=== PATIENT | female | born 1950 | race Caucasian/White ===

== ENCOUNTER 2017-02-04 18:35 | Observation (INO) | payer MEDICARE, BC ==
[~2017-02-04] VITALS: Ht 160 cm; Wt 77.3 kg
[~2017-02-04 18:35] MED LIST: CRES10 PO; FER325 PO; LEVO500T72 PO; ONDA4TAB8 PO; OXYC-281 PO; PANT40TA4 PO; SUMA100T9 PO
[2017-02-04] MEDS ORDERED: morphine 2 MG INJ IV ONE (19:30)
[2017-02-04 19:37] LABS: BASOPHILS % 0.8 % (0.0-2.0); EOSINOPHILS # 0.1 10^3/ul (0.0-0.5); EOSINOPHILS % 1.5 % (0.0-7.0); HEMATOCRIT 36.6 % (37.0-47.0); HEMOGLOBIN 12.8 g/dl (12.0-16.0); LYMPHOCYTES # 1.6 10^3/ul (0.8-2.9); LYMPHOCYTES % 30.8 % (15.0-51.0); MEAN CORPUSCULAR HEMOGLOBIN 31.9 pg (29.0-33.0); MEAN CORPUSCULAR VOLUME 91.3 fl (82.0-101.0); MEAN PLATELET VOLUME 8.4 fl (7.4-10.4); MONOCYTE # 0.4 10^3/ul (0.3-0.9); MONOCYTES % 7.5 % (0.0-11.0); NEUTROPHIL # 3.1 10^3/ul (1.6-7.5); NEUTROPHILS % 59.2 % (39.0-77.0); PLATELET COUNT 220 10^3/UL (140-415); RED BLOOD COUNT 4.01 10^6/ul (4.20-5.40); RED CELL DISTRIBUTION WIDTH 11.3 % (11.5-14.5); WHITE BLOOD COUNT 5.2 10^3/ul (4.8-10.8)
[2017-02-04 19:56] LABS: INR 0.94; PROTIME 12.6 Sec (12.2-14.2)
[2017-02-04 19:57] LABS: PARTIAL THROMBOPLASTIN TIME 33.4 Sec (25.0-35.0)
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
[2017-02-04 20:11] LABS: ALANINE AMINOTRANSFERASE 34 IU/L (13-69); ALBUMIN 4.5 g/dl (3.3-4.9); ALKALINE PHOSPHATASE 105 IU/L (42-121); ANION GAP 16 (8-16); ASPARTATE AMINO TRANSFERASE 23 IU/L (15-46); BLOOD UREA NITROGEN 9 mg/dl (7-20); CALCIUM 9.5 mg/dl (8.4-10.2); CARBON DIOXIDE 25 mmol/L (21-31); CHLORIDE 88 mmol/L (97-110); CREATININE 0.85 mg/dl (0.44-1.00); GLUCOSE 79 mg/dl (70-220); POTASSIUM 4.5 mmol/L (3.5-5.1); SODIUM 124 mmol/L (135-144); TOTAL PROTEIN 6.7 g/dl (6.1-8.1)
[2017-02-04 20:24] LABS: TROPONIN-I < 0.012 ng/ml (0.00-0.12)
[2017-02-04] MEDS ORDERED: SOD CHLORIDE 0.9% 100 ML ONE (20:28)
[2017-02-04] MEDS ORDERED: IOHEXOL 300MG/ML 150 ML BTL ONE (20:28)
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
[2017-02-04 22:53] LABS: ADD UMIC YES; UR ASCORBIC ACID NEGATIVE (NEGATIVE); UR BILIRUBIN (Dip) NEGATIVE (NEGATIVE); UR BLOOD (Dip) 1+ mg/dL (NEGATIVE); UR CLARITY CLEAR (CLEAR); UR COLOR COLORLESS (YELLOW); UR GLUCOSE (Dip) NEGATIVE (NEGATIVE); UR KETONES (Dip) TRACE mg/dL (NEGATIVE); UR LEUKOCYTE ESTERASE (Dip) NEGATIVE Leu/ul (NEGATIVE); UR NITRITE (Dip) NEGATIVE (NEGATIVE); UR RBC 2 /HPF (0-5); UR SPECIFIC GRAVITY (Dip) 1.011 (1.003-1.030); UR SQUAMOUS EPITHELIAL CELL FEW /HPF (FEW); UR TOTAL PROTEIN (Dip) NEGATIVE (NEGATIVE); UR UROBILINOGEN (Dip) NEGATIVE (NEGATIVE)
[2017-02-04] MEDS ORDERED: ONDANSETRON 4 MG INJ IV PRN (23:00)
[2017-02-04] MEDS ORDERED: ACETAMINOPHEN 325 MG TAB PO PRN (23:00)
[2017-02-04] MEDS ORDERED: CITA-104 PO (23:03)
[2017-02-04] MEDS ORDERED: DIAZ10TA4 PO (23:03)
[2017-02-04 23:04] LABS: POTASSIUM,URINE RANDOM 9.8 mmol/L (25-125)
[2017-02-04] MEDS ORDERED: SOLI10TA5 PO (23:05)
[2017-02-04] MEDS ORDERED: MEMA5TAB PO (23:05)
[2017-02-04] MEDS ORDERED: FURO20TA3 PO (23:17)
[2017-02-05] VITALS (14 sets, daily range): BP systolic 126–173; BP diastolic 60–74; PULSE 58–68; RESP 16–18; TEMP 98.6; Ht 160 cm; Wt 77.3 kg
[2017-02-05] MEDS ORDERED: DIAZEPAM 5 MG TAB PO PRN (02:00)
[2017-02-05] MEDS: SOD CHLORIDE 0.9% 1,000 ML IV SCH ×5 (02:56→23:33)
[2017-02-05] MEDS: OXYCODONE/ACETAMINOPHEN (5/325) TAB PO PRN ×5 (03:00→23:29)
[2017-02-05] MEDS: morphine 2 MG INJ IV PRN ×4 (03:00→20:10)
[2017-02-05] MEDS: PANTOPRAZOLE (EC) 40 MG TAB PO SCH (05:06)
[2017-02-05] MEDS: LEVOFLOXACIN 500 MG TAB PO SCH (05:06)
[2017-02-05] MEDS: SUMATRIPTAN 50 MG TAB PO PRN ×2 (05:21→14:09)
[2017-02-05 08:11] LABS: CALCIUM 8.9 mg/dl (8.4-10.2); CREATININE 0.87 mg/dl (0.44-1.00); POTASSIUM 4.3 mmol/L (3.5-5.1)
[2017-02-05] MEDS: SOLIFENACIN 5 MG TAB PO SCH (09:00)
[2017-02-05] MEDS: MEMANTINE 5 MG TAB PO SCH ×2 (09:01→21:19)
[2017-02-05] MEDS: CITALOPRAM 20 MG TAB PO SCH (09:02)
[2017-02-05] MEDS: ACETAMINOPHEN 325 MG TAB PO PRN (11:55)
[2017-02-05] MEDS: ONDANSETRON 4 MG TAB PO PRN (11:55)
[2017-02-05] MEDS ORDERED: ALBUTEROL 0.083% (NEB) 2.5 MG/3 ML AMP HHN PRN (13:30)
[2017-02-05] MEDS ORDERED: LEVOTHYROXINE 50 MCG TAB PO ONE (14:30)
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
[2017-02-05] MEDS ORDERED: ATORVASTATIN 40 MG TAB PO SCH (21:00)
[2017-02-06] VITALS: BP 134/62; RESP 18
[2017-02-06 00:03] VITALS: PULSE 61
[2017-02-06] MEDS: morphine 2 MG INJ IV PRN (00:40)
[2017-02-06 04:00] VITALS: BP 131/60; RESP 20
[2017-02-06 04:03] VITALS: PULSE 63
[2017-02-06] MEDS ORDERED: SUMATRIPTAN 50 MG TAB PO ONE (04:30)
[2017-02-06] MEDS: ACETAMINOPHEN 325 MG TAB PO PRN ×2 (04:33→12:42)
[2017-02-06] MEDS ORDERED: LEVOTHYROXINE 50 MCG TAB PO SCH (06:00)
[2017-02-06] MEDS: LEVOFLOXACIN 500 MG TAB PO SCH (06:44)
[2017-02-06] MEDS: PANTOPRAZOLE (EC) 40 MG TAB PO SCH (06:44)
[2017-02-06 08:07] VITALS: PULSE 61
[2017-02-06 08:21] LABS: ALBUMIN 3.6 g/dl (3.3-4.9); ALBUMIN/GLOBULIN RATIO 1.71; CALCIUM 9.3 mg/dl (8.4-10.2); CREATININE 0.57 mg/dl (0.44-1.00); POTASSIUM 4.6 mmol/L (3.5-5.1); TOTAL PROTEIN 5.7 g/dl (6.1-8.1)
[2017-02-06] MEDS: CITALOPRAM 20 MG TAB PO SCH (09:35)
[2017-02-06] MEDS: MEMANTINE 5 MG TAB PO SCH (09:36)
[2017-02-06] MEDS: OXYCODONE/ACETAMINOPHEN (5/325) TAB PO PRN (09:36)
[2017-02-06] MEDS: ONDANSETRON 4 MG TAB PO PRN (09:36)
[2017-02-06] MEDS: SOLIFENACIN 5 MG TAB PO SCH (09:36)
[2017-02-06] MEDS: SOD CHLORIDE 0.9% 1,000 ML IV SCH (11:10)
[2017-02-06 12:26] VITALS: PULSE 81
[2017-02-06] MEDS ORDERED: LEVO50TA83 PO (13:54)
--- NOTE | 2017-02-06 13:55 | PDOCDIS ---
Discharge Instructions DIAGNOSIS Discharge Diagnosis hyponatremia due to dehydration; chest contusion; migraine h/a CONDITION Patient Condition: Good HOME CARE INSTRUCTIONS: Diet Instructions: Low Fat /Cholesterol ACTIVITY: Activity Restrictions: No Restrictions FOLLOW UP/APPOINTMENTS Follow-up Plan follow up with Dr. Mendiola as needed AMOL SCOTT MD- Feb 06, 2017 13:55
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
== END 2017-02-06 15:10 | disposition home or self-care (01) ==
LOC: E/R 18:35 → MS4 22:37
PROVIDERS: ADMIT Internal Medicine; ATTEND Internal Medicine
DX: E86.0 Dehydration (principal); E87.1 Hypo-osmolality and hyponatremia; S20.219A Contusion of unspecified front wall of thorax, initial encounter; M54.2 Cervicalgia; M79.604 Pain in right leg; E78.5 Hyperlipidemia, unspecified; E03.9 Hypothyroidism, unspecified; G43.909 Migraine, unspecified, not intractable, without status migrainosus; F32.9 Major depressive disorder, single episode, unspecified; F41.9 Anxiety disorder, unspecified; J44.9 Chronic obstructive pulmonary disease, unspecified; Z85.3 Personal history of malignant neoplasm of breast; G40.909 Epilepsy, unspecified, not intractable, without status epilepticus; Z92.21 Personal history of antineoplastic chemotherapy; Z92.3 Personal history of irradiation; Z82.49 Family history of ischemic heart disease and other diseases of the circulatory system; Z82.62 Family history of osteoporosis; Z83.6 Family history of other diseases of the respiratory system; V89.2XXA Person injured in unspecified motor-vehicle accident, traffic, initial encounter; Y93.9 Activity, unspecified; Y92.9 Unspecified place or not applicable; Y99.9 Unspecified external cause status
CPT/HCPCS: 36415; 70450; 71010; 71260; 72125; 72170; 74177; 80048; 80053; 80076; 81001; 82436; 83930; 83935; 84133; 84300; 84484; 85025; 85610; 85730; 86850; 86900; 86901; 87086; 93005; 96374; 99291; G0378; J2270; J7030; Q9967; 99217

== ENCOUNTER 2017-03-01 10:03 | Inpatient (IN) | payer MEDICARE, BC ==
[~2017-03-01] VITALS: Ht 175.3 cm; Wt 77.3 kg
[~2017-03-01 10:03] MED LIST changes: +CITA-104 PO; +DIAZ10TA4 PO; -FER325 PO; -LEVO500T72 PO; +LEVO50TA83 PO; +MEMA5TAB PO; +SOLI10TA5 PO
[2017-03-01] MEDS ORDERED: FAMOTIDINE 20 MG INJ IV STA (10:28)
[2017-03-01] MEDS ORDERED: METOCLOPRAMIDE 10 MG INJ IV STA (10:28)
[2017-03-01] MEDS ORDERED: SOD CHLORIDE 0.9% 1,000 ML IV STA (10:28)
[2017-03-01] MEDS ORDERED: SUMATRIPTAN 25 MG TAB PO ONE (11:30)
[2017-03-01 11:37] LABS: ALBUMIN 4.4 g/dl (3.3-4.9); ALBUMIN/GLOBULIN RATIO 1.57; BILIRUBIN,INDIRECT 0.3 mg/dl (0-1.1); BILIRUBIN,TOTAL 0.3 mg/dl (0.2-1.3); CALCIUM 9.2 mg/dl (8.4-10.2); CREATININE 0.61 mg/dl (0.44-1.00); POTASSIUM 4.7 mmol/L (3.5-5.1); TOTAL PROTEIN 7.2 g/dl (6.1-8.1)
[2017-03-01 11:42] LABS: BASOPHILS % 0.3 % (0.0-2.0); EOSINOPHILS % 0.2 % (0.0-7.0); HEMATOCRIT 36.3 % (37.0-47.0); HEMOGLOBIN 12.6 g/dl (12.0-16.0); LYMPHOCYTES # 0.8 10^3/ul (0.8-2.9); LYMPHOCYTES % 13.1 % (15.0-51.0); MEAN CORPUSCULAR HGB CONC 34.7 g/dl (32.0-37.0); MEAN CORPUSCULAR VOLUME 92.1 fl (82.0-101.0); MEAN PLATELET VOLUME 8.6 fl (7.4-10.4); MONOCYTE # 0.4 10^3/ul (0.3-0.9); MONOCYTES % 6.3 % (0.0-11.0); NEUTROPHILS % 79.8 % (39.0-77.0); PLATELET COUNT 191 10^3/UL (140-415); RED BLOOD COUNT 3.94 10^6/ul (4.20-5.40); RED CELL DISTRIBUTION WIDTH 11.8 % (11.5-14.5)
[2017-03-01] MEDS ORDERED: ONDANSETRON 4 MG INJ IV STA (11:52)
[2017-03-01 12:31] VITALS: TEMP 98.5
[2017-03-01] MEDS ORDERED: SOD CHLORIDE 0.9% 1,000 ML IV SCH (12:47)
--- NOTE | 2017-03-01 12:52 | ERA ---
ER Documentation Chief Complaint Date/Time DATE: 03/01/17 TIME: 12:50 Chief Complaint FLU LIKE SYMPTOMS X2 DAYS HPI This is a 66-year-old female presents to the emergency room for evaluation of nausea, vomiting and diarrhea for the past 2 days. The patient states that her diarrhea has been watery, non-mucousy, nonbloody. The patient denies any recent travel. She states that she has abdominal cramping which is worse with vomiting and diarrhea. The patient came to the ER today for evaluation of her symptoms. She denies any aggravating or relieving factors for her symptoms at this time. ROS All systems reviewed and are negative except as per history of present illness. Medications Home Meds Active Scripts Levothyroxine Sodium* (Synthroid*) 50 Mcg Tablet, 50 MCG PO DAILY@06 for 30 Days , #30 TAB Prov:AMOL SCOTT MD- 02/06/17 Reported Medications Solifenacin* (Vesicare*) 10 Mg Tablet, 10 MG PO DAILY, TAB 02/04/17 Memantine* (Namenda*) 5 Mg Tablet, 5 MG PO BID, #60 TAB 02/04/17 Citalopram Hydrobromide* (Citalopram Hydrobromide*) 40 Mg Tablet, 40 MG PO DAILY , #30 TAB 02/04/17 Diazepam* (Diazepam*) 10 Mg Tablet, 10 MG PO for BLADDER SPASMS, TAB 02/04/17 Oxycodone Hcl-Acetaminophen* (Percocet*) 5-325 Mg Tablet, 1 TAB PO Q4H Y for PAIN, TAB 11/27/14 Rosuvastatin Calcium* (Crestor*) 10 Mg Tablet, 10 MG PO DAILY 03/20/14 Pantoprazole (Protonix) 40 Mg Tabec, 40 MG PO DAILY 03/20/14 Sumatriptan Succinate* (Imitrex*) 100 Mg Tablet, 100 MG PO PRN May repeat after 2 hours if needed; MAX 200 mg/24 hours 03/20/14 Ondansetron Hcl* (Zofran*) 4 Mg Tablet, 4 MG PO PRN 03/20/14 Allergies Allergies: Coded Allergies: No Known Drug Allergy (Verified Allergy, Unknown, 08/26/14) PMhx/Soc History of Surgery: Yes (hysterectomy, mastectomy, knee replacement) Anesthesia Reaction: No Hx Neurological Disorder: Yes (seizures) Hx Respiratory Disorders: No Hx Cardiac Disorders: No Hx Psychiatric Problems: No Hx Miscellaneous Medical Probl: Yes (BREAST CA) Hx Alcohol Use: No Hx Substance Use: No Hx Tobacco Use: No Smoking Status: Never smoker Physical Exam Vitals Vital Signs Date Time Temp Pulse Resp B/P Pulse Ox O2 Delivery O2 Flow Rate FiO2 03/01/17 12:31 98.5 65 20 161/69 99 Room Air 03/01/17 10:22 97.1 67 20 155/76 99 Physical Exam Const: No acute distress Head: Atraumatic Eyes: Normal Conjunctiva ENT: Dry mucous membranes, normal External Ears, Nose and Mouth. Neck: Full range of motion..~ No meningismus. Resp: Clear to auscultation bilaterally Cardio: Regular rate and rhythm, no murmurs Abd: Soft, non tender, non distended. Normal bowel sounds Skin: No petechiae or rashes Back: No midline or flank tenderness Ext: No cyanosis, or edema Neur: Awake and alert Psych: Normal Mood and Affect Result Diagram: 03/01/17 1126 03/01/17 1042 Results 24 hrs Laboratory Tests Test 03/01/17 10:42 03/01/17 11:26 Sodium Level 133mmol/L Potassium Level 4.7mmol/L Chloride Level 98mmol/L Carbon Dioxide Level 21mmol/L Anion Gap 19 Blood Urea Nitrogen 4mg/dl Creatinine 0.61mg/dl Glucose Level 136mg/dl Calcium Level 9.2mg/dl Total Bilirubin 0.3mg/dl Direct Bilirubin 0.00mg/dl Indirect Bilirubin 0.3mg/dl Aspartate Amino Transf (AST/SGOT) 28IU/L Alanine Aminotransferase (ALT/SGPT) 24IU/L Alkaline Phosphatase 112IU/L Total Protein 7.2g/dl Albumin 4.4g/dl Globulin 2.80g/dl Albumin/Globulin Ratio 1.57 Lipase 60U/L White Blood Count 6.010^3/ul Red Blood Count 3.9410^6/ul Hemoglobin 12.6g/dl Hematocrit 36.3% Mean Corpuscular Volume 92.1fl Mean Corpuscular Hemoglobin 32.0pg Mean Corpuscular Hemoglobin Concent 34.7g/dl Red Cell Distribution Width 11.8% Platelet Count 29564^3/UL Mean Platelet Volume 8.6fl Neutrophils % 79.8% Lymphocytes % 13.1% Monocytes % 6.3% Eosinophils % 0.2% Basophils % 0.3% Nucleated Red Blood Cells % 0.0/100WBC Neutrophils # (Manual) 510^3/ul Lymphocytes # 0.810^3/ul Monocytes # 0.410^3/ul Eosinophils # 0.010^3/ul Basophils # 0.010^3/ul Nucleated Red Blood Cells # 0.010^3/ul Current Medications Medications (Trade) Dose Ordered Sig/Louis Route PRN Reason Start Time Stop Time Status Last Admin Dose Admin Sodium Chloride (NS) 1,000 ml @ 1,000 mls/hr Q1H STAT IV 03/01/17 10:28 03/01/17 11:27 DC 03/01/17 10:46 Metoclopramide HCl (Reglan) 10 mg ONCE STAT IV 03/01/17 10:28 03/01/17 10:30 DC 03/01/17 10:46 Famotidine (Pepcid Iv) 20 mg ONCE STAT IV 03/01/17 10:28 03/01/17 10:30 DC 03/01/17 10:46 Sumatriptan Succinate (Imitrex) 25 mg ONCE ONCE PO 03/01/17 11:30 03/01/17 11:31 DC 03/01/17 11:40 Ondansetron HCl (Zofran Inj) 4 mg ONCE STAT IV 03/01/17 11:52 03/01/17 11:54 DC 03/01/17 11:57 Procedures/MDM EKG: Rate/Rhythm: [Normal Sinus Rhythm] QRS, ST, T-waves: [No changes consistent w/ acute ischemia] Impression: [No evidence of ischemia or arrhythmia] X-ray Abdomen 1V Interpreted by me: Free Air: [None] Bowel Gas: [Nonspecific] Soft Tissue: [Normal] This 66-year-old female presents to the emergency room for evaluation of nausea , vomiting and diarrhea. When I evaluated this patient this patient did have dry mucous membranes. Lab work was obtained which does not show any significant lab abnormality. The patient was given Zofran in the emergency room. She was complaining of a migraine and was also given Imitrex 25 mg p.o. After receiving Zofran the patient continued to vomit. The patient was then given additional dosage of 10 mg of Reglan. After small period of time I reevaluated this patient and she was still vomiting. EKG was obtained which is nonischemic. Troponin is negative. The patient will be placed in at this time for admission for intractable vomiting. She will be admitted to [facility] [place] [place] observation of the care of her primary care physician Dr. vanda couch who is okay with her plan of care at this time Departure Diagnosis: Primary Impression: Vomiting and diarrhea Additional Impression: Acute vomiting Condition: Stable ADI DANIEL DO Mar 01, 2017 12:52
[2017-03-01] MEDS ORDERED: ONDANSETRON 4 MG INJ IV PRN (13:00)
[2017-03-01] MEDS ORDERED: ACETAMINOPHEN 325 MG TAB PO PRN (13:00)
--- NOTE | 2017-03-01 13:38 | RADRPT ---
PROCEDURE: XR Abdomen 1 View. CLINICAL INDICATION: Abdominal pain and vomiting. TECHNIQUE: AP abdomen x-ray. COMPARISON: CT February 04, 2017 FINDINGS: Air and stool are seen scattered within the colon. No dilated loops of small bowel are observed. No organomegaly is identified. Phlebolith is seen in the right pelvis. Generative changes are identif ied in the spine with mild scoliosis convex to the left. IMPRESSION: Nonspecific bowel gas pattern. If further characterization of the abdomen is needed CT should be considered. RPTAT: AA .Zachariah Montoya MD, Date Time Electronically viewed and signed by .Zachariah Montoya MD, on 03/01/2017 13:37 .P/
[2017-03-01 14:12] VITALS: BP 188/76; RESP 18
[2017-03-01] MEDS ORDERED: SOD CHLORIDE 0.9% 1,000 ML IV ONE (16:00)
[2017-03-01] MEDS ORDERED: DIPHENOXYLATE/ATROPINE TAB PO PRN (16:00)
[2017-03-01 16:38] VITALS: Ht 175.3 cm; Wt 77.3 kg
[2017-03-01] MEDS ORDERED: PROCHLORPERAZINE 5 MG TAB PO PRN (17:30)
[2017-03-01] MEDS: metroNIDAZOLE 250 MG TAB PO SCH ×2 (17:39→22:49)
[2017-03-01] MEDS: GABAPENTIN 300 MG CAP PO SCH ×2 (17:39→20:34)
[2017-03-01] MEDS: SOD CHLORIDE 0.9% 1,000 ML IV SCH (17:40)
[2017-03-01] MEDS: traMADol 50 MG TAB PO PRN (17:55)
[2017-03-01 19:42] VITALS: BP 153/72; RESP 20
[2017-03-01] MEDS: SUMATRIPTAN 50 MG TAB PO PRN (20:05)
[2017-03-01] MEDS: TOPIRAMATE 100 MG TAB PO SCH (20:34)
[2017-03-01] MEDS: ONDANSETRON 4 MG INJ IV PRN (20:34)
[2017-03-02] MEDS: SUMATRIPTAN 50 MG TAB PO PRN ×2 (03:14→21:18)
[2017-03-02 03:25] VITALS: BP 144/65; RESP 20
[2017-03-02] MEDS: SOD CHLORIDE 0.9% 1,000 ML IV SCH ×2 (05:21→17:00)
[2017-03-02] MEDS: metroNIDAZOLE 250 MG TAB PO SCH ×3 (05:21→21:18)
[2017-03-02 06:08] LABS: BASOPHILS % 0.7 % (0.0-2.0); EOSINOPHILS % 0.5 % (0.0-7.0); HEMATOCRIT 37.4 % (37.0-47.0); HEMOGLOBIN 12.4 g/dl (12.0-16.0); LYMPHOCYTES # 1.2 10^3/ul (0.8-2.9); LYMPHOCYTES % 21.5 % (15.0-51.0); MEAN CORPUSCULAR HEMOGLOBIN 31.2 pg (29.0-33.0); MEAN CORPUSCULAR HGB CONC 33.2 g/dl (32.0-37.0); MEAN PLATELET VOLUME 8.9 fl (7.4-10.4); MONOCYTE # 0.4 10^3/ul (0.3-0.9); MONOCYTES % 6.2 % (0.0-11.0); NEUTROPHILS % 70.9 % (39.0-77.0); PLATELET COUNT 211 10^3/UL (140-415); RED BLOOD COUNT 3.98 10^6/ul (4.20-5.40); WHITE BLOOD COUNT 5.6 10^3/ul (4.8-10.8)
[2017-03-02 06:48] LABS: CREATININE 0.66 mg/dl (0.44-1.00); POTASSIUM 3.7 mmol/L (3.5-5.1)
[2017-03-02 08:10] VITALS: BP 167/72; RESP 16
[2017-03-02] MEDS: TOPIRAMATE 100 MG TAB PO SCH ×2 (08:24→21:18)
[2017-03-02] MEDS: GABAPENTIN 300 MG CAP PO SCH ×3 (08:24→21:18)
[2017-03-02] MEDS: traMADol 50 MG TAB PO PRN (10:45)
[2017-03-02] MEDS: ONDANSETRON 4 MG INJ IV PRN ×2 (10:45→16:43)
[2017-03-02] MEDS ORDERED: PHENYTOIN IVPB SCH (13:30)
[2017-03-02] MEDS ORDERED: SOD CHLORIDE 0.9% IVPB SCH (13:30)
[2017-03-02 14:54] VITALS: BP 150/70; RESP 18
[2017-03-02] MEDS: LORAZEPAM 2 MG INJ IV PRN (16:43)
[2017-03-02] MEDS ORDERED: MEPERIDINE 50 MG INJ IM PRN (18:30)
[2017-03-02] MEDS: HYDROmorphONE 1 MG/ML SYG IV PRN (19:04)
[2017-03-02 20:05] VITALS: BP 151/74; RESP 18
[2017-03-02] MEDS: PHENYTOIN 100 MG CAP PO SCH (21:18)
[2017-03-02] MEDS: GUAIFENESIN LA 600 MG TABSR PO SCH (21:18)
[2017-03-03] MEDS: HYDROmorphONE 1 MG/ML SYG IV PRN ×5 (00:26→22:43)
[2017-03-03 02:00] VITALS: BP 159/77; RESP 18
[2017-03-03] MEDS: metroNIDAZOLE 250 MG TAB PO SCH ×3 (06:34→21:03)
[2017-03-03] MEDS: SOD CHLORIDE 0.9% 1,000 ML IV SCH ×2 (06:35→18:07)
[2017-03-03 08:12] VITALS: BP 158/72; RESP 20
[2017-03-03] MEDS: GUAIFENESIN LA 600 MG TABSR PO SCH ×2 (08:23→21:02)
[2017-03-03] MEDS: TOPIRAMATE 100 MG TAB PO SCH ×2 (08:23→21:02)
[2017-03-03] MEDS: GABAPENTIN 300 MG CAP PO SCH ×3 (08:23→21:03)
[2017-03-03] MEDS: LORAZEPAM 2 MG INJ IV PRN ×2 (10:09→16:14)
[2017-03-03 10:45] VITALS: BP 168/80; PULSE 86; RESP 18
[2017-03-03] MEDS: traMADol 50 MG TAB PO PRN (11:05)
[2017-03-03] MEDS ORDERED: LORAZEPAM 2 MG INJ IV ONE (11:41)
[2017-03-03] MEDS: PHENYTOIN 100 MG CAP PO SCH (11:56)
[2017-03-03 14:27] VITALS: BP 143/70; RESP 18
[2017-03-03] MEDS: ONDANSETRON INJ 8 MG in DEXTROSE 5% 50 ML IV PRN ×2 (15:08→23:12)
[2017-03-03] MEDS ORDERED: LORAZEPAM 0.5 MG TAB PO PRN (17:30)
[2017-03-03] MEDS: SUMATRIPTAN 50 MG TAB PO PRN (18:44)
[2017-03-03 20:00] VITALS: BP 142/69; RESP 20
[2017-03-03] MEDS: VERAPAMIL 40 MG TAB PO SCH (21:03)
[2017-03-04 02:00] VITALS: BP 140/64; RESP 20
[2017-03-04] MEDS: metroNIDAZOLE 250 MG TAB PO SCH (05:51)
[2017-03-04] MEDS: SOD CHLORIDE 0.9% 1,000 ML IV SCH (05:51)
[2017-03-04] MEDS: HYDROmorphONE 1 MG/ML SYG IV PRN (05:51)
[2017-03-04] MEDS: TOPIRAMATE 100 MG TAB PO SCH (08:22)
[2017-03-04] MEDS: GUAIFENESIN LA 600 MG TABSR PO SCH (08:22)
[2017-03-04] MEDS: VERAPAMIL 40 MG TAB PO SCH ×2 (08:22→13:00)
[2017-03-04 08:27] VITALS: BP 141/80; PULSE 79; RESP 20
[2017-03-04 08:33] LABS: CREATININE 0.47 mg/dl (0.44-1.00)
[2017-03-04 08:35] LABS: CALCIUM 5.3 mg/dl (8.4-10.2); POTASSIUM 2.6 mmol/L (3.5-5.1)
[2017-03-04] MEDS ORDERED: POTASSIUM CHLORIDE (SR) 20 MEQ TAB PO STA (10:53)
[2017-03-04] MEDS ORDERED: HYDROmorphONE 2 MG TAB PO PRN (11:00)
[2017-03-04] MEDS ORDERED: CALCIUM CARBONATE 500 MG CHEW TAB PO ONE (12:00)
--- NOTE | 2017-03-04 12:22 | PDOCDIS ---
Discharge Instructions DIAGNOSIS Discharge Diagnosis 1. Gastroenteritis--n/v/d 2. stress musc twitchings 3. labile michelle depression--panic attacks 4. htn 5. fm 6. h/o breast ca 7. pain management CONDITION Patient Condition: Fair HOME CARE INSTRUCTIONS: Diet Instructions: Low Fat /CholesterolSpecial Diet: Vegetarian Diet ACTIVITY: Activity Restrictions: Slowly Increase Activity Bathing Restrictions: Sponge Bath FOLLOW UP/APPOINTMENTS Follow-up Plan 1. f/up with dr fidel beckford on 03/08. 2. f/up neuro within 1-2 weeks 3. f/up brain mri w/ contrast 4. continue all home meds 5. increase daytime fluid FIDEL BECKFORD MD Mar 04, 2017 12:22
[2017-03-04] MEDS ORDERED: METR250T PO (12:24)
--- NOTE | 2017-03-04 12:33 | DS ---
Date/Time of Note Date/Time of Note DATE: 03/04/17 TIME: 12:26 Discharge Summary Admission/Discharge Info Admit Date/Time Mar 03, 2017 at 17:15 Discharge Date/Time 03/04/2017 Discharge Diagnosis 1. Gastroenteritis--n/v/d 2. stress musc twitchings 3. labile michelle depression--panic attacks 4. htn 5. fm 6. h/o breast ca 7. pain management Patient Condition: Fair Consults radiology Procedures kub Hx of Present Illness as above Hospital Course after receiving extensive ivf, atbx, ativan, dilantin, increased gabapentin, restarted verapamil, [id number] dilaudid, within 72 hrs, her n/v/d got better, no more musc twitchings today, walked to bathroom & hallway ok, ate ok, vs stable. Home Meds Active Scripts Levothyroxine Sodium* (Synthroid*) 50 Mcg Tablet, 50 MCG PO DAILY@06 for 30 Days , #30 TAB Prov:AMOL SCOTT MD- 02/06/17 Reported Medications Solifenacin* (Vesicare*) 10 Mg Tablet, 10 MG PO DAILY, TAB 02/04/17 Memantine* (Namenda*) 5 Mg Tablet, 5 MG PO BID, #60 TAB 02/04/17 Citalopram Hydrobromide* (Citalopram Hydrobromide*) 40 Mg Tablet, 40 MG PO DAILY , #30 TAB 02/04/17 Diazepam* (Diazepam*) 10 Mg Tablet, 10 MG PO for BLADDER SPASMS, TAB 02/04/17 Oxycodone Hcl-Acetaminophen* (Percocet*) 5-325 Mg Tablet, 1 TAB PO Q4H Y for PAIN, TAB 11/27/14 Rosuvastatin Calcium* (Crestor*) 10 Mg Tablet, 10 MG PO DAILY 03/20/14 Pantoprazole (Protonix) 40 Mg Tabec, 40 MG PO DAILY 03/20/14 Sumatriptan Succinate* (Imitrex*) 100 Mg Tablet, 100 MG PO PRN May repeat after 2 hours if needed; MAX 200 mg/24 hours 03/20/14 Ondansetron Hcl* (Zofran*) 4 Mg Tablet, 4 MG PO PRN 03/20/14 Follow-up Plan 1. 03/08 tue 11am with Fidel Mendiola MD 2. f/up with neuro w/in 1-2wks 3. f/up brain mri with contrast Primary Care Provider Fidel Mendiola MD Time spent on discharge: < 30 minutes Pending Labs Laboratory Tests Test 03/04/17 05:37 Sodium Level 146mmol/L (135-144) Potassium Level 2.6mmol/L (3.5-5.1) Chloride Level 121mmol/L (97-110) Carbon Dioxide Level 16mmol/L (21-31) Anion Gap 12 (8-16) Blood Urea Nitrogen 2mg/dl (7-20) Creatinine 0.47mg/dl (0.44-1.00) Glucose Level 62mg/dl (70-220) Calcium Level 5.3mg/dl (8.4-10.2) FIDEL MENDIOLA MD Mar 04, 2017 12:33
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
--- NOTE | 2017-03-04 12:54 | PN ---
Date/Time of Note Date/Time of Note DATE: 03/02/17 TIME: 16:48 Assessment/Plan VTE Prophylaxis VTE Prophylaxis Intervention: other (asa) Lines/Catheters IV Catheter Type (from Nrsg): Peripheral IV Central line still needed: No Urinary Cath still in place: No Assessment/Plan Chief Complaint/Hosp Course after receiving extensive ivf, atbx, ativan, dilantin, increased gabapentin, restarted verapamil, [id number] dilaudid, within 72 hrs, her n/v/d got better, no more musc twitchings today, walked to bathroom & hallway ok, ate ok, vs stable. Problems: Assessment/Plan 1.ge w/ dehydration 2. stress musc twitching 3. anxiety-depression 4. n-trevino-pain management 5. h/o rld/ htn/ low t4/ breast ca ---cont ivf ---cont atbx ---inc zofran dose ---inc dilaudid freq ---son needs to move out of her house Subjective 24 Hr Interval Summary Free Text/Dictation having musc spasms+ no urine/ stool/ consciousness loss still feels nausea+ stress from son+ afebrile, tachy+ bronch wheez+ no more v/d FIDEL BECKFORD MD Mar 04, 2017 12:54
--- NOTE | 2017-03-04 13:00 | PN ---
Date/Time of Note Date/Time of Note DATE: 03/03/17 TIME: 16:54 Assessment/Plan VTE Prophylaxis VTE Prophylaxis Intervention: other (asa) Lines/Catheters IV Catheter Type (from Nrsg): Peripheral IV Central line still needed: No Urinary Cath still in place: No Assessment/Plan Chief Complaint/Hosp Course after receiving extensive ivf, atbx, ativan, dilantin, increased gabapentin, restarted verapamil, [id number] dilaudid, within 72 hrs, her n/v/d got better, no more musc twitchings today, walked to bathroom & hallway ok, ate ok, vs stable. Problems: Assessment/Plan 1. ge w/ dehydration 2. stress musc twitching 3. n-trevino-pain manage 4. anxiety-depression 5. h/o htn/ rld/ low t4/ breast ca ---add verapamil 40mg qid ---cont atbx ---cont ivf ---give ativan 1mg qid round the clock ---prep to go home tomorrow w/ [facility] nurse Subjective 24 Hr Interval Summary Free Text/Dictation mom visited still nausea/ trevino--wants more pain meds no more v/d, ate more, walking more steady inside her room still had 2 musc twitching today Exam/Review of Systems Vital Signs Vitals Vital Signs Date Time Temp Pulse Resp B/P Pulse Ox O2 Delivery O2 Flow Rate FiO2 03/03/17 08:27 98.9 79 20 141/80 96 Room Air Intake and Output 03/03/17 03/03/17 15:00 23:00 Intake Total 2414 ml Balance 2414 ml Exam periorbital edema due to crying+ bronch wheez+ tachy+ no c/c/e Results Result Diagram: 03/02/17 0530 03/04/17 0537 Results 24 hrs Laboratory Tests Test 03/04/17 05:37 Sodium Level 146 H Potassium Level 2.6 *L Chloride Level 121 H Carbon Dioxide Level 16 L Anion Gap 12 Blood Urea Nitrogen 2 L Creatinine 0.47 Glucose Level 62 L Calcium Level 5.3 *L Medications Medications Current Medications Diphenoxylate HCl/ Atropine 1 tab 1 tab Q3H PRN PO DIARRHEA; Start 03/01/17 at 16:00 Sodium Chloride (NS) 1,000 ml @ 80 mls/hr [id number] IV Last administered on 03/04 05:51; Admin Dose 80 MLS/HR; Start 03/01/17 at 16:00 Metronidazole (Flagyl) 250 mg Q8 PO Last administered on 03/04/17 05:51; Admin Dose 250 MG; Start 03/01/17 at 16:30 Sumatriptan Succinate (Imitrex) 100 mg DAILY PRN PO migraine Last administered on 03/03/17 18:44; Admin Dose 100 MG; Start 03/01/17 at 17:30 Tramadol HCl (Ultram) 50 mg TID PRN PO PAIN LEVEL 6-10 Last administered on 11:05; Admin Dose 50 MG; Start 03/01/17 at 17:30 Topiramate (Topamax) 100 mg BID PO Last administered on 03/04/17 08:22; Admin Dose 100 MG; Start 03/01/17 at 21:00 Gabapentin (Neurontin) 600 mg QHS PO Last administered on 03/03/17 21:03; Admin Dose 600 MG; Start 03/01/17 at 21:00 Prochlorperazine (Compazine) 5 mg Q4H PRN PO NAUSEA AND/OR VOMITING Last administered on 03/04/17 09:49; Admin Dose 5 MG; Start 03/01/17 at 17:30 Phenytoin 300 mg 300 mg HS PO Last administered on 03/03/17 11:56; Admin Dose 300 MG; Start 03/02/17 at 21:00 Ondansetron HCl/ Dextrose (Zofran Inj/D5W) 54 ml @ 108 mls/hr Q6H PRN IV NAUSEA AND/OR VOMITING Last administered on 03/03/17 23:12; Admin Dose 108 MLS/ HR; Start 03/02/17 at 18:30 Hydromorphone HCl (Dilaudid) 1 mg Q4H PRN IV HEADACHE Last administered on 03/04 05:51; Admin Dose 1 MG; Start 03/02/17 at 18:30 Guaifenesin (Mucinex) 600 mg BID PO Last administered on 03/04/17 08:22; Admin Dose 600 MG; Start 03/03/17 at 21:00 Verapamil HCl (Isoptin) 40 mg QID PO Last administered on 03/04/17 08:22; Admin Dose 40 MG; Start 03/03/17 at 21:00 Lorazepam (Ativan) 0.5 mg QID PRN PO ANXIETY Last administered on 03/03/17 21: 58; Admin Dose 0.5 MG; Start 03/03/17 at 17:30 Hydromorphone HCl (Dilaudid) 4 mg Q6H PRN PO PAIN Last administered on 11:05; Admin Dose 4 MG; Start 03/04/17 at 11:00 FIDEL BECKFORD MD Mar 04, 2017 13:00
== END 2017-03-04 14:00 | disposition home health service (06) | DRG 641 ==
LOC: E/R 10:03 → MS2 12:47 → OBSVTOIN 03-03 17:15
PROVIDERS: ADMIT Internal Medicine; ATTEND Internal Medicine
DX: E86.0 Dehydration (principal); K52.9 Noninfective gastroenteritis and colitis, unspecified; I10 Essential (primary) hypertension; M62.838 Other muscle spasm; F41.0 Panic disorder [episodic paroxysmal anxiety]; F32.9 Major depressive disorder, single episode, unspecified; E03.9 Hypothyroidism, unspecified; G43.909 Migraine, unspecified, not intractable, without status migrainosus; K21.9 Gastro-esophageal reflux disease without esophagitis; G47.00 Insomnia, unspecified; Z72.0 Tobacco use; Z85.3 Personal history of malignant neoplasm of breast
CPT/HCPCS: 36415; 74000; 80048; 80053; 82310; 83690; 84132; 84484; 85025; 93005; 96374; 96375; G0378; J1165; J1170; J2060; J2405; J2765; J7030

== ENCOUNTER → 2017-05-24 | Outpatient (CLI) | payer MEDICARE, BC ==
[~2017-05-24] MED LIST changes: +METR250T PO; -SOLI10TA5 PO
--- NOTE | 2017-05-24 23:05 | SP ---
DATE OF PROCEDURE: 05/24/2017 NAME OF PROCEDURE: EEG. INDICATION: This is an outpatient study for a 66-year-old lady with seizures. She is currently on Topamax. DESCRIPTION OF PROCEDURE: Routine EEG was recorded digitally. Ukpdg-[id number] and zaifm-gt-pzj scott ages were recorded and reviewed. All impedances were measured and recorded. Cap electrodes were pl aced in accordance with International 10-20 system of electrode placement. FINDINGS: Symmetrically distributed background activity of low to medium amplitude ranging in frequ ency between 9 to 11 cycles per second was seen in the awake state. Photic stimulation produces mil d normal driving. Eye opening attenuates the background. When patient gets drowsy and falls asleep , background rhythm gets less organized partially replaced by slower waves 4 to 6 cycles per second. No definite epileptiform transients were seen. No signs of ongoing electrographic seizures or later alized slowing. IMPRESSION: Normal study. Please correlate clinically. Dictated By: MARIELOS DOWD/BARBARA Conf#: [id number] DID#: [id number]
== END | disposition home or self-care (01) ==
LOC: EEG 12:45
PROVIDERS: ATTEND Family Medicine Adult Medicine
DX: G40.909 Epilepsy, unspecified, not intractable, without status epilepticus (principal)
CPT/HCPCS: 95819